=== PATIENT | female | born 1985 | race Caucasian/White ===

== ENCOUNTER 2024-10-28 14:32 | Emergency (ER) | payer SELFPAY ==
[~2024-10-28] VITALS: Ht 167.6 cm; Wt 89.0 kg
[2024-10-28] MEDS: ONDANSETRON 4MG ODT PO ONE (15:10)
[2024-10-28] MEDS: MORPHINE SULFATE 4 MG/ML INJ (FOR IV/IM USE) IM ONE (15:10)
[2024-10-28] MEDS: FENTANYL CITRATE/PF 50MCG/ML 2ML VIAL IV ONE ×2 (16:59→17:05)
[2024-10-28] MEDS: PROPOFOL 200MG/20ML VIAL IV ONE (17:25)
[2024-10-28] MEDS ORDERED: TOPUD PO (18:24)
[2024-10-28] MEDS ORDERED: IBUP-2028 MT (18:24)
[2024-10-28] MEDS ORDERED: ONDANSETRON HCL 4MG/2ML INJ IV ONE (18:30)
[2024-10-28 18:55] VITALS: TEMP 37; O2SAT 99
[2024-10-28 18:56] VITALS: BP 122/79; PULSE 72; RESP 19; TEMP 98.60; O2SAT 99
== END 2024-10-28 19:03 | disposition home or self-care (01) ==
LOC: ER 14:32
DX: S53.125A Posterior dislocation of left ulnohumeral joint, initial encounter (principal); W01.0XXA Fall on same level from slipping, tripping and stumbling without subsequent striking against object, initial encounter; Y93.89 Activity, other specified; Y92.89 Other specified places as the place of occurrence of the external cause; Y99.8 Other external cause status
CPT/HCPCS: 73060; 73070; 73090; 24600; 96372; 99152; 99285; J3010; Q0162; J2704; J2270; Z7610